=== PATIENT | male | born 1985 | race African-American/Black ===

== ENCOUNTER 2016-09-28 11:01 | Emergency (ER) | payer BC ==
--- NOTE | ~2016-09-28 | CR63 ---
[facility] A Service of [facility] RADIOLOGY TEXT RESULTS PATIENT: RADHA HARRINGTON LOCATION: SED : 83 UNIT #: [id number] AGE: [address]: Lisa Shipley APRN SEX: M ORDER DR: [id number] [place] [id number] E MR#: [id number] Acc #: [id number] NAME: RADHA HARRINGTON. : 1985 SEX: M STUDY DATE/TIME: 09/28/2016 11:01 UNIT: SED ROOM: STUDY DESCRIPTION: CR Chest 2 View Attending Physician: Lisa Shipley A.P.R.N. Ordering Physician: Lisa Bauer A.P.R.N. Primary Care Physician: Primary Care Physician No MEDICAL IMAGING REPORT This report is preliminary unless electronic signature is present. EXAM Chest x-ray, 09/28/2016 HISTORY 31-year-old male in the ED complaining of 1-week history of shortness of air, difficulty breathing. History of asthma. TECHNIQUE AP and lateral upright chest series. FINDINGS The lungs are expanded and clear. Heart size and pulmonary vascularity are normal. No visible pulmonary infiltrate or pleural effusion. No change since 02/11/2015. IMPRESSION No active disease. No change since 02/11/2015. Dictated by... Drake Petit M.D. THIS IS AN ELECTRONICALLY VERIFIED REPORT Drake Petit M.D. at 09/28/2016 3:58 PM Maria D TD: 09/28/2016 12:44 JOB #: [id number] MEDICAL IMAGING REPORT Page 1 of 1
[~2016-09-28 11:01] MED LIST: ACETAMINOPHEN PO; ACETAMINOPHEN650 M1 PO; ALBUTEROL17 G1 IH; ALBUTEROL17 GM INH; ALPRAZOLAM PO; AMOXICILLIN PO; ASPIRIN81 M1 PO; CEPHALEXIN500 M1 PO; COLACE PO; COREG3.125 MG PO; FAMOTIDINE PO; K-DUR20 ME1 PO; MEDROL PO; MIRALAX17 GM PO; NOVOLIN 70/30 V10 M1 SUBQ; PEPCID AC20 M2 PO; PREDNISONE PO; PRILOSEC20 MG PO; TYLENOL80 MG/0.8 PO; ZITHROMAX PO; ZITHROMAX1 G/PKT PO; ZYRTEC-D T1 TAB.SR . PO
== END 2016-09-28 12:41 | disposition home or self-care (01) ==
LOC: SED 11:01
DX: J45.901 Unspecified asthma with (acute) exacerbation (principal); F41.9 Anxiety disorder, unspecified
CPT/HCPCS: 71020; 94640; 99284